=== PATIENT | female | born 1960 | race Caucasian/White ===

== ENCOUNTER → 2017-05-29 | Day surgery (SDC) | payer OTHER ==
[~2017-05-29] MED LIST: ACETAMINOPHEN 1000 MG/100 ML 100 ML IV ONE; BUPIVACAINE HCL 0.5% INJ 30 ML VIAL INJ ONE; CEFAZOLIN SOD 2 GM/D5W 50ML 50 ML IV ONE; DEXAMETHASONE SOD PHOS INJ 4 MG/ML VIAL ONE; FENTANYL CITRATE/PF 100MCG/2 ML INJ ONE; IBUPROFEN400 MG PO; LIDOCAINE HCL 2% LOCAL INJ 5 ML SDV VIAL INJ ONE; MIDAZOLAM HCL 2 MG/2 ML VIAL ONE; ONDANSETRON HCL INJ 2 MG/ML VIAL ONE; PROPOFOL IV EMULSION 10 MG/ML 20 ML VIAL ONE; SEVOFLURANE INHAL SOLN 250 ML PEN BTL ONE; TYLENOL WITH C1 EACH PO
--- NOTE | 2017-05-29 16:51 | Operative Report ---
DATE OF PROCEDURE: May 29, 2017 PREOPERATIVE DIAGNOSIS: Displaced right distal radius fracture. POSTOPERATIVE DIAGNOSIS: Displaced right distal radius fracture. PROCEDURE PERFORMED: Closed reduction and percutaneous pinning of the displaced distal radius fracture on the right. EMPLOYMENT CLERK: Mattie Schmidt. ANESTHESIA: General endotracheal intubation anesthesia. IV FLUIDS: Per the anesthesia record. DESCRIPTION OF PROCEDURE: Ms. Brown was taken to the operating room and placed in a supine position on the operating table. Following induction of general anesthesia as well as endotracheal intubation, the patient's right upper extremity was examined under anesthesia. She was found to have bruise and ecchymosis involving the wrist joint. There was an obvious deformity at the level of the wrist. Fluoroscopic evaluation of the wrist joint demonstrated a dorsally displaced and malaligned distal radius fracture. The patient's upper extremity was prepped and draped in standard surgical fashion. The wrist was then manipulated in a closed fashion. This resulted in acceptable realignment of the injury. Two 0.062 K-wires were started distally at the level of the radial styloid, and the surgical supply assistant advanced those pins across the patient's fracture site while the surgeon held the wrist out to length and in a reduced position. The position of those pins as well as reduction of the fracture site was then assessed fluoroscopically and found to be appropriate. The pin sites were then dressed sterilely, and the patient was provided a sugar-tong splint, awakened and taken to the postanesthesia care in stable condition. Mattie Schmidt acted as surgical supply assistant for this case and was necessary for both prepping and draping the patient as well as the positioning of the hardware during the case that allowed this case to be successful. Job#: [id number]
== END | disposition home or self-care (01) ==
LOC: OR 07:56
PROVIDERS: ATTEND Specialist
DX: S52.531A Colles' fracture of right radius, initial encounter for closed fracture (principal); W18.39XA Other fall on same level, initial encounter; Y93.89 Activity, other specified; Y99.8 Other external cause status; F41.9 Anxiety disorder, unspecified; Z68.31 Body mass index [BMI] 31.0-31.9, adult
CPT/HCPCS: 25606; 93005; J1100; J2001; J2250; J2405; 76000

== ENCOUNTER 2017-08-07 09:56 | Outpatient (RCR) | payer OTHER ==
[~2017-08-07 09:56] MED LIST changes: -ACETAMINOPHEN 1000 MG/100 ML 100 ML IV ONE; -BUPIVACAINE HCL 0.5% INJ 30 ML VIAL INJ ONE; -CEFAZOLIN SOD 2 GM/D5W 50ML 50 ML IV ONE; -DEXAMETHASONE SOD PHOS INJ 4 MG/ML VIAL ONE; -FENTANYL CITRATE/PF 100MCG/2 ML INJ ONE; -LIDOCAINE HCL 2% LOCAL INJ 5 ML SDV VIAL INJ ONE; -MIDAZOLAM HCL 2 MG/2 ML VIAL ONE; -ONDANSETRON HCL INJ 2 MG/ML VIAL ONE; -PROPOFOL IV EMULSION 10 MG/ML 20 ML VIAL ONE; -SEVOFLURANE INHAL SOLN 250 ML PEN BTL ONE
== END 2017-08-17 ==
LOC: OT 09:56
PROVIDERS: ATTEND Specialist
DX: S62.101A Fracture of unspecified carpal bone, right wrist, initial encounter for closed fracture (principal)
CPT/HCPCS: 97139